=== PATIENT | male | born 2000 | race Two or more races ===

== ENCOUNTER 2024-09-24 23:28 | Emergency (ER) | payer OTHER ==
[~2024-09-24] VITALS: Ht 167.6 cm; Wt 68.0 kg
[2024-09-25] MEDS ORDERED: ACETAMINOPHEN 500 MG GEL..CAP PO STA (05:11)
[2024-09-25] MEDS ORDERED: ACETAMINOPHEN 500 MG GEL..CAP PO ONE (05:14)
== END 2024-09-25 06:19 | disposition home or self-care (01) ==
LOC: ER 23:31
DX: S30.0XXA Contusion of lower back and pelvis, initial encounter (principal); S80.12XA Contusion of left lower leg, initial encounter; S80.11XA Contusion of right lower leg, initial encounter; S70.02XA Contusion of left hip, initial encounter; S70.01XA Contusion of right hip, initial encounter; V03.931A Pedestrian on standing electric scooter injured in collision with car, pick-up or van, unspecified whether traffic or nontraffic accident, initial encounter; Y93.89 Activity, other specified; Y92.413 State road as the place of occurrence of the external cause; Y99.9 Unspecified external cause status